=== PATIENT | male | born 1990 | race Asian ===

== ENCOUNTER 2016-08-18 13:33 | Emergency (ER) | payer OTHER ==
[~2016-08-18] VITALS: Ht 165.1 cm; Wt 66.4 kg
[2016-08-18 13:38] VITALS: BP 132/85
== END 2016-08-18 15:25 | disposition home or self-care (01) ==
LOC: ED 14:55
DX: S80.12XA Contusion of left lower leg, initial encounter (principal); V19.9XXA Pedal cyclist (driver) (passenger) injured in unspecified traffic accident, initial encounter; Y93.55 Activity, bike riding; Y92.410 Unspecified street and highway as the place of occurrence of the external cause; Y99.8 Other external cause status